=== PATIENT | female | born 1930 | race Caucasian/White ===

== ENCOUNTER 2016-12-15 18:58 | Emergency (ER) | payer MEDICARE, OTHER ==
[~2016-12-15] VITALS: Ht 149.9 cm; Wt 53.2 kg
[2016-12-15] MEDS ORDERED: KEFLEX500 MG PO (20:53)
[2016-12-15 21:10] VITALS: BP 147/50
== END 2016-12-15 21:12 | disposition home or self-care (01) ==
LOC: ED 18:58
PROC: 0HQNXZZ Repair Left Foot Skin, External Approach (ICD-10-PCS; principal; 2016-12-15)
DX: S91.115A Laceration without foreign body of left lesser toe(s) without damage to nail, initial encounter (principal); M25.475 Effusion, left foot; W22.8XXA Striking against or struck by other objects, initial encounter; Y93.89 Activity, other specified; Y92.000 Kitchen of unspecified non-institutional (private) residence as the place of occurrence of the external cause; F17.210 Nicotine dependence, cigarettes, uncomplicated

== ENCOUNTER 2016-12-22 09:52 | Emergency (ER) | payer MEDICARE, OTHER ==
[~2016-12-22] VITALS: Ht 149.9 cm; Wt 50.0 kg
[~2016-12-22 09:52] MED LIST: KEFLEX500 MG PO
[2016-12-22 10:13] VITALS: BP 165/70
== END 2016-12-22 10:24 | disposition home or self-care (01) ==
LOC: ED 09:52
DX: S91.115D Laceration without foreign body of left lesser toe(s) without damage to nail, subsequent encounter (principal); I25.10 Atherosclerotic heart disease of native coronary artery without angina pectoris; I10 Essential (primary) hypertension; F17.210 Nicotine dependence, cigarettes, uncomplicated; X58.XXXD Exposure to other specified factors, subsequent encounter